=== PATIENT | male | born 1970 | race Caucasian/White ===

== ENCOUNTER 2020-01-28 22:20 | Emergency (ER) | payer OTHER ==
[~2020-01-28] VITALS: Ht 177.8 cm; Wt 77.1 kg
[2020-01-28 22:25] VITALS: Ht 177.8 cm; Wt 77.1 kg
[2020-01-29 00:01] VITALS: BP 179/105
== END 2020-01-28 23:59 | disposition left against medical advice (07) ==
LOC: ED 22:20
DX: I10 Essential (primary) hypertension (principal); F15.129 Other stimulant abuse with intoxication, unspecified; E11.9 Type 2 diabetes mellitus without complications; F17.210 Nicotine dependence, cigarettes, uncomplicated; Z13.9 Encounter for screening, unspecified

== ENCOUNTER → 2020-01-28 | Emergency (ER) | payer OTHER | LOC: ED 22:20 | DX: Z02.89 Encounter for other administrative examinations (principal) ==

== ENCOUNTER 2020-02-05 08:28 | Emergency (ER) | payer OTHER ==
[~2020-02-05] VITALS: Ht 177.8 cm; Wt 72.6 kg
[2020-02-05 08:30] VITALS: Ht 177.8 cm; Wt 72.6 kg
[2020-02-05 11:18] VITALS: BP 141/102
== END 2020-02-05 11:18 | disposition other institution (70) ==
LOC: ED 08:28
DX: I10 Essential (primary) hypertension (principal); R73.9 Hyperglycemia, unspecified; F15.10 Other stimulant abuse, uncomplicated; M54.12 Radiculopathy, cervical region; F17.210 Nicotine dependence, cigarettes, uncomplicated; Z71.6 Tobacco abuse counseling
CPT/HCPCS: 82962; 99406

== ENCOUNTER 2020-02-05 08:28 | Emergency (ER) | payer OTHER | END 2020-02-05 11:18 | disposition other institution (70) | LOC: ED 08:28 | DX: Z02.89 Encounter for other administrative examinations (principal) ==